=== PATIENT | female | born 1975 | race Caucasian/White ===

== ENCOUNTER 2017-07-04 02:30 | Emergency (ER) | payer BC, OTHER ==
[~2017-07-04] VITALS: Ht 170.2 cm; Wt 77.1 kg
[2017-07-04] MEDS ORDERED: VISTARIL 25 MG25 M1 PO (03:17)
[2017-07-04] MEDS ORDERED: LAC-HYDRIN FIV226 GM TOP (03:17)
== END 2017-07-04 03:30 | disposition home or self-care (01) ==
LOC: ER 02:30
DX: L85.8 Other specified epidermal thickening (principal); L65.9 Nonscarring hair loss, unspecified